=== PATIENT | male | born 1935 | race Caucasian/White ===

== ENCOUNTER 2017-10-01 08:00 | Outpatient (CLI) | payer MEDICARE, BC | END 2017-10-01 08:01 | disposition home or self-care (01) | LOC: BICCT 08:00 | PROVIDERS: ATTEND Internal Medicine Critical Care Medicine | DX: J90 Pleural effusion, not elsewhere classified (principal); J98.6 Disorders of diaphragm; R91.8 Other nonspecific abnormal finding of lung field | CPT/HCPCS: 71250 ==

== ENCOUNTER 2018-10-13 08:32 | Outpatient (CLI) | payer MEDICARE, BC ==
--- NOTE | 2018-10-13 09:55 | CT ---
CT THORAX WITHOUT CONTRAST: INDICATIONS: Followup lung lesion. COMPARISON: 10/01/2017 and 01/01/2017 FINDINGS: The pleural thickening with pleural-based calcification overlying the left upper lobe anterolaterally is stable. The rounded atelectasis involving the left upper lobe is slightly less prominent than on the most recent comparison, dated 10/01/2017. The more rounded, nodular component measures 1.4 x 1 cm, where previously it measured 1.7 x 1.1 cm. There are scattered calcified granuloma. No new susp icious pulmonary nodules evident. Post CABG change is stable. Adrenal glands are normal appearing. No acute osseous abnormality is evident. Post CABG change is similar appearing. IMPRESSION: 1. Stable areas of suspected rounded atelectasis in the left upper lobe. Follow-up examination in t hree to six months would be recommended to document complete stability. 2. Other stable chronic findings as above. POS: [facility]
== END 2018-10-13 08:33 | disposition home or self-care (01) ==
LOC: CT 08:32
PROVIDERS: ATTEND Internal Medicine Critical Care Medicine
DX: R91.1 Solitary pulmonary nodule (principal); J92.9 Pleural plaque without asbestos; J94.8 Other specified pleural conditions; Z95.1 Presence of aortocoronary bypass graft
CPT/HCPCS: 71250

== ENCOUNTER 2018-10-26 09:22 | Outpatient (CLI) | payer MEDICARE, BC ==
--- NOTE | 2018-10-26 12:03 | CT ---
CT ABDOMEN AND PELVIS WITH AND WITHOUT IV CONTRAST: Date: 10-26-18 Provided Clinical History: Microhematuria. FINDINGS: The visualized lung bases are free of significant opacity. There is a 2-3 mm nonobstructing superior pole right renal calculus. No additional urinary tract calc hernando are evident. There is no evidence for renal mass or hydronephrosis. The renal collecting systems, opacified ureters and urinary bladder demonstrate no evidence for filling defect. The urinary bladde r is incompletely distended and not optimally evaluated. The liver, spleen, pancreas, and right adrenal gland appear unremarkable. There is a centimeter lipid left adrenal adenoma. There is no bowel dilatation, inflammatory fat stranding, free fluid or lymph node enlargement appare nt. Vascular calcifications are noted involving the abdominal aorta and its branches. Sigmoid colonic diverticulosis is seen. The osseous structures demonstrate no evidence for a concerning lytic or blastic lesion. IMPRESSION: 1. 2-3 mm nonobstructing superior pole right renal calculus. 2. Other chronic findings as above. POS: [facility]
[2018-10-26] MEDS ORDERED: ISOVUE-370 76%-LOCM 1 ML ONE (13:08)
== END 2018-10-26 09:23 | disposition home or self-care (01) ==
LOC: BICCT 09:22
PROVIDERS: ATTEND Urology
DX: R31.1 Benign essential microscopic hematuria (principal); N20.0 Calculus of kidney; D35.02 Benign neoplasm of left adrenal gland; I70.0 Atherosclerosis of aorta; K57.30 Diverticulosis of large intestine without perforation or abscess without bleeding
CPT/HCPCS: 74178; 82565; Q9966

== ENCOUNTER 2019-10-06 09:42 | Outpatient (CLI) | payer MEDICARE, BC ==
--- NOTE | 2019-10-06 11:10 | CT ---
CT CHEST WITHOUT CONTRAST: INDICATIONS: Follow up lung nodule. COMPARISON: Prior chest CT from 10/13/2018. TECHNIQUE: Axial tomograms obtained with multiplanar reconstruction. FINDINGS: Dense, linear stranding is seen in the left upper lobe, extending from the left hilum to the anterior pleural surface. There is associated pleural thickening and calcified pleural plaquing along the ant erior pleura of the left chest, which was noted previously. The linear, somewhat nodular appearing walter ng opacity in the left upper lobe appears stable. The anterior pleural thickening and calcification i n the left chest appears stable. There is a small calcified granuloma along the fissure in the mid le ft chest, which is stable. The right lung is clear. There is a 3 mm calcified granuloma in the right lung base, unchanged. The lung espino are otherwise clear. The mediastinum is unremarkable with nonspecific lymph nodes, which are stable. Images through the upper abdomen show a small nodular density involving the left adrenal gland, measu ring approximately 1 cm. This is a stable finding and has density suggesting benign adenoma. The uppe r abdomen is otherwise unremarkable and unchanged. IMPRESSION: Stable chest findings when compared to prior examination. POS: [facility]
== END 2019-10-06 09:43 | disposition home or self-care (01) ==
LOC: BICCT 09:42
PROVIDERS: ATTEND Internal Medicine Critical Care Medicine
DX: R91.1 Solitary pulmonary nodule (principal)
CPT/HCPCS: 71250

== ENCOUNTER 2020-05-25 16:23 | Observation (INO) | payer MEDICARE, BC, OTHER ==
[2020-05-25 17:08] VITALS: BMI 23.1
[2020-05-25 17:22] LABS: #Basophils 0.1 thou/uL (0.0-0.2); #Eosinphils 0.5 thou/uL (0.0-0.7); #Lymphocytes 1.1 thou/uL (1.20-3.40); #Monocytes 0.9 thou/uL (0.11-0.59); #Neutrophils 4.5 thou/uL (1.40-6.50); %Basophils 1.1 % (0.0-1.0); %Eosinophils 7.6 % (0.0-10.0); %Lymphocytes 15.8 % (21.0-51.0); %Monocytes 13.2 % (0.0-10.0); %Neutrophils 62.3 % (42.0-75.0); Hemoglobin 11.8 g/dL (14.0-18.0); Mean Corpuscular HGB CONC 32.6 g/dL (32.0-36.0); Mean Corpuscular Hemoglobin 32.5 pg (27.0-31.0); Mean Corpuscular Volume 99.6 fL (78.0-98.0); Mean Platelet Volume 7.2 fL (7.4-10.4); Platelet Count 187 thou/uL (130-400); RBC Distribution Width 12.3 % (11.5-14.5); Red Blood Cell (RBC) Count 3.64 mill/uL (4.70-6.10); White Blood Cell (WBC) Count 7.1 thou/uL (4.8-10.8)
[2020-05-25 17:30] LABS: INR-International Normal Ratio 2.5
[2020-05-25] MEDS ORDERED: Zolpidem Tartrate 5 MG TAB PO PRN (17:32)
[2020-05-25 17:39] LABS: ALT (SGPT) 12 U/L (8-55); AST (SGOT) 14 U/L (5-34); Albumin 3.9 g/dL (3.4-4.8); Alkaline Phosphatase 77 U/L (40-110); Anion Gap 14 mmol/L (10-20); BUN (Urea Nitrogen) 34 mg/dL (8.4-25.7); Bilirubin, Total 0.4 mg/dL (0.2-1.2); Calc. Creatinine Clearance 37 mL/min (70-130); Calcium 8.6 mg/dL (7.8-10.44); Carbon Dioxide 24 mmol/L (23-31); Chloride 100 mmol/L (98-107); Estimated GFR-MDRD 39; Globulin 2.8 g/dL (2.4-3.5); Glucose 192 mg/dL (83-110); Potassium 4.4 mmol/L (3.5-5.1); Protein, Total 6.7 g/dL (5.8-8.1); Sodium 134 mmol/L (136-145)
[2020-05-25 17:42] LABS: CKMB 1.1 ng/mL (0-6.6)
[2020-05-25] MEDS ORDERED: Phytonadione 10 MG/ML AMP PO SCH (18:00)
[2020-05-25] MEDS: Sodium Chloride 0.9% 1,000 ML IV SCH (18:42)
[2020-05-25] MEDS ORDERED: Atorvastatin Calcium 10 MG TAB PO SCH (21:00)
[2020-05-25 23:32] LABS: Troponin I Less than 0.010 ng/mL (< 0.028)
[2020-05-26 02:54] LABS: #Eosinphils 0.5 thou/uL (0.0-0.7); #Lymphocytes 1.6 thou/uL (1.20-3.40); #Monocytes 1.1 thou/uL (0.11-0.59); #Neutrophils 4.6 thou/uL (1.40-6.50); %Basophils 0.6 % (0.0-1.0); %Eosinophils 6.5 % (0.0-10.0); %Lymphocytes 20.5 % (21.0-51.0); %Monocytes 13.7 % (0.0-10.0); %Neutrophils 58.6 % (42.0-75.0); Hemoglobin 11.6 g/dL (14.0-18.0); Mean Corpuscular HGB CONC 33.4 g/dL (32.0-36.0); Mean Corpuscular Hemoglobin 32.5 pg (27.0-31.0); Mean Corpuscular Volume 97.4 fL (78.0-98.0); Mean Platelet Volume 7.3 fL (7.4-10.4); Platelet Count 172 thou/uL (130-400); RBC Distribution Width 12.3 % (11.5-14.5); Red Blood Cell (RBC) Count 3.57 mill/uL (4.70-6.10); White Blood Cell (WBC) Count 7.9 thou/uL (4.8-10.8)
[2020-05-26 03:33] LABS: Troponin I 0.025 ng/mL (< 0.028)
[2020-05-26 03:37] LABS: ALT (SGPT) 11 U/L (8-55); AST (SGOT) 14 U/L (5-34); Albumin 3.7 g/dL (3.4-4.8); Alkaline Phosphatase 71 U/L (40-110); Anion Gap 15 mmol/L (10-20); BUN (Urea Nitrogen) 30 mg/dL (8.4-25.7); Bilirubin, Total 0.5 mg/dL (0.2-1.2); Calc. Creatinine Clearance 46 mL/min (70-130); Calcium 8.3 mg/dL (7.8-10.44); Carbon Dioxide 22 mmol/L (23-31); Chloride 105 mmol/L (98-107); Estimated GFR-MDRD 50; Globulin 2.5 g/dL (2.4-3.5); Glucose 108 mg/dL (83-110); Potassium 4.5 mmol/L (3.5-5.1); Protein, Total 6.2 g/dL (5.8-8.1); Sodium 137 mmol/L (136-145)
[2020-05-26] MEDS: Sodium Chloride 0.9% 1,000 ML IV SCH (05:18)
[2020-05-26 05:52] LABS: Troponin I 0.022 ng/mL (< 0.028)
[2020-05-26] MEDS ORDERED: Levothyroxine 150 MCG TAB PO SCH (06:00)
[2020-05-26] MEDS ORDERED: Lidocaine 1% (PF) 30 ML VIAL ONE (06:49)
[2020-05-26] MEDS ORDERED: Sodium Chloride 0.9% 200 ML IV PRN (08:12)
[2020-05-26] MEDS ORDERED: Nitroglycerin 0.4 MG TAB (25 Tab Bottle) SL PRN (08:12)
[2020-05-26] MEDS ORDERED: Acetaminophen/Codeine 30-300mg Tablet PO PRN ×2 (08:12)
[2020-05-26] MEDS ORDERED: Sodium Chloride 0.9% 1,000 ML IV SCH (08:15)
[2020-05-26 08:57] VITALS: BP 170/70; TEMP 98
[2020-05-26 09:00] LABS: Troponin I 0.023 ng/mL (< 0.028)
[2020-05-26] MEDS ORDERED: Aspirin Chewable 81 MG TAB PO SCH (09:00)
[2020-05-26] MEDS ORDERED: Multivit, Therapeutic 1 TAB PO SCH (09:00)
[2020-05-26] MEDS ORDERED: Dutasteride 0.5 MG CAP PO SCH (09:00)
[2020-05-26] MEDS ORDERED: Tamsulosin HCl 0.4 MG CAP PO SCH ×3 (09:00→21:00)
[2020-05-26] MEDS ORDERED: Amlodipine 5 MG TAB PO SCH ×2 (09:00→21:00)
--- NOTE | 2020-05-26 09:13 | DIS ---
DATE OF ADMISSION: 05/25/2020 DATE OF DISCHARGE: 05/26/2020 DISCHARGE DIAGNOSES: 1. Abnormal EKG. 2. Coronary artery disease. 3. Atrial fibrillation. HOSPITAL COURSE: Mr. Marinelli is a pleasant 85-year-old gentleman who recently was admitted from the office. He had dynamic EKG changes with deep T-wave inversions. It was felt to be a new finding over the last week. He had a recent stress test that was felt to be within normal limits. He was admitted due to abnormal EKG suggesting unstable angina. His CKs and troponins were negative. His initial INR was 2.6. He was given 10 mg of vitamin K. INR in the morning of the angio was 2.0. He underwent coronary angiography. He was found to have no significant changes from angio in 2012. The stent to the diagonal and OM are patent. His FAIR to the LAD, saphenous vein graft to the right coronary artery, OM, diagonal branch are patent. Perclose was used. After the above EKG changes likely due to memory, he does have an intermittent left bundle-branch block followed by normal conduction. It is unknown whether he truly has symptoms from the above. We would recommend a 3-week event recorder to assess for significant rhythm issues. We will also change his Coumadin to Eliquis 5 mg one p.o. b.i.d. at least temporarily. He will likely continue to decrease his INR after receiving vitamin K. If he opts for Coumadin as outpatient, we can certainly switch after several weeks. DISCHARGE MEDICATIONS: Include: 1. Amlodipine 5 mg daily. 2. Tamsulosin 0.8 at bedtime. 3. Olmesartan 20 daily. 4. Multivitamin one daily. 5. Levothyroxine 150 daily. 6. Lasix p.r.n. 7. Aspirin 81 daily. 8. Eliquis 5 mg b.i.d. 9. Metoprolol 25 at bedtime. 10. Atorvastatin 10 mg daily. CONDITION ON DISCHARGE: Stable. Job ID: [id number]
[2020-05-26 12:41] LABS: SARS-CoV-2 MS2 Positive; SARS-CoV-2 N Gene Negative; SARS-CoV-2 S Gene Negative; SARS-CoV-2 by NAA Not Detected (NotDetected); SARS-CoV-2 orf1ab Negative
[2020-05-26] MEDS ORDERED: Iopamidol 370 76% 100 ML VIAL ONE (14:06)
[2020-05-26] MEDS ORDERED: Apixaban 5 MG TAB PO SCH (21:00)
== END 2020-05-26 15:50 | disposition home or self-care (01) ==
LOC: 2SW 16:41
PROVIDERS: ADMIT Internal Medicine Cardiovascular Disease; ATTEND Internal Medicine Cardiovascular Disease
PROC: 4A023N7 Measurement of Cardiac Sampling and Pressure, Left Heart, Percutaneous Approach (ICD-10-PCS; principal; 2020-05-26)
PROC: B2111ZZ Fluoroscopy of Multiple Coronary Arteries using Low Osmolar Contrast (ICD-10-PCS; 2020-05-26)
DX: I25.110 Atherosclerotic heart disease of native coronary artery with unstable angina pectoris (principal); I48.0 Paroxysmal atrial fibrillation; I10 Essential (primary) hypertension; E03.9 Hypothyroidism, unspecified; E78.5 Hyperlipidemia, unspecified; Z20.828 Contact with and (suspected) exposure to other viral communicable diseases; Z79.899 Other long term (current) drug therapy; Z95.1 Presence of aortocoronary bypass graft
CPT/HCPCS: 76942; 80053 ×2; 82553 ×2; 84484 ×4; 85025 ×2; 85610 ×2; 93458; 96360; 96361 ×2; C1760; G0378 ×2; U0003; 36415; 87635; J1644; J2001; J3430; Q9967

== ENCOUNTER 2020-08-30 09:34 | Outpatient (CLI) | payer MEDICARE, BC ==
--- NOTE | 2020-08-30 10:18 | CT ---
EXAM: CT of the chest without contrast HISTORY: Pulmonary nodule COMPARISON: 10/06/2019, 10/13/2018, 04/01/2017 TECHNIQUE: Multiple contiguous axial images were obtained in a CT the chest without contrast. Coronal and sagittal reformats were performed. FINDINGS: HEART: Normal in size without focal cardiac abnormality. Status post CABG. Calcifications in the samuel nary arteries. MEDIASTINUM: No hilar or mediastinal lymphadenopathy. Evaluation of the mediastinum is limited withou t IV contrast. LUNGS: Calcified granulomas are seen in the right lower lobe and along the left major fissure in the left lower lobe. There is stable scarring with associated volume loss in the left upper lobe. This hasn't changed significantly in appearance since 2017. PLEURAL SPACE: Small left pleural effusion. Peripheral pleural-based calcifications are seen in the a nterior aspect of the left thorax. CHEST WALL SOFT TISSUES: Unremarkable OSSEOUS STRUCTURES: Degenerative changes in the spine. VISUALIZED SUBDIAPHRAGMATIC STRUCTURES: There is stable fullness of the left adrenal gland. IMPRESSION: 1. No suspicious pulmonary nodules identified 2. Small left pleural effusion 3. Stable scarring in the left upper lobe.
== END 2020-08-30 09:35 | disposition home or self-care (01) ==
LOC: BICCT 09:34
PROVIDERS: ATTEND Internal Medicine Critical Care Medicine
DX: R91.1 Solitary pulmonary nodule (principal); J90 Pleural effusion, not elsewhere classified; J98.4 Other disorders of lung
CPT/HCPCS: 71250

== ENCOUNTER 2021-08-16 11:45 | Inpatient (IN) | payer MEDICARE, BC ==
[2021-08-16] MEDS ORDERED: Amiodarone 150 MG/3 ML VIAL ONE (12:00)
[2021-08-16] MEDS ORDERED: Magnesium 2 GM/50 ML BAG (IN WATER) ONE (12:01)
[2021-08-16 12:11] LABS: #Basophils 0.1 thou/uL (0.0-0.2); #Lymphocytes 0.8 thou/uL (1.20-3.40); #Monocytes 0.7 thou/uL (0.11-0.59); #Neutrophils 5.7 thou/uL (1.40-6.50); %Basophils 0.8 % (0.0-1.0); %Eosinophils 0.6 % (0.0-10.0); %Lymphocytes 10.7 % (21.0-51.0); %Monocytes 9.7 % (0.0-10.0); %Neutrophils 78.2 % (42.0-75.0); Hemoglobin 12.8 g/dL (14.0-18.0); Mean Corpuscular HGB CONC 31.2 g/dL (32.0-36.0); Mean Corpuscular Hemoglobin 30.8 pg (27.0-31.0); Mean Corpuscular Volume 98.6 fL (78.0-98.0); Mean Platelet Volume 7.2 fL (7.4-10.4); Platelet Count 214 thou/uL (130-400); RBC Distribution Width 12.4 % (11.5-14.5); Red Blood Cell (RBC) Count 4.15 mill/uL (4.70-6.10); White Blood Cell (WBC) Count 7.3 thou/uL (4.8-10.8)
[2021-08-16] MEDS ORDERED: Diltiazem 125 MG/25 ML ONE (12:17)
[2021-08-16 12:28] LABS: ALT (SGPT) 20 U/L (8-55); AST (SGOT) 18 U/L (5-34); Albumin 4.1 g/dL (3.4-4.8); Alkaline Phosphatase 76 U/L (40-110); Anion Gap 11 mmol/L (10-20); BUN (Urea Nitrogen) 25 mg/dL (8.4-25.7); Bilirubin, Total 0.7 mg/dL (0.2-1.2); Calc. Creatinine Clearance 0 mL/min (70-130); Calcium 9.1 mg/dL (7.8-10.44); Carbon Dioxide 27 mmol/L (23-31); Chloride 102 mmol/L (98-107); Globulin 3.2 g/dL (2.4-3.5); Glucose 135 mg/dL (83-110); Potassium 4.3 mmol/L (3.5-5.1); Protein, Total 7.3 g/dL (5.8-8.1); Sodium 136 mmol/L (136-145)
[2021-08-16 13:51] LABS: INR-International Normal Ratio 2.2; Prothrombin Time 24.5 sec (12.0-14.7)
[2021-08-16 13:52] LABS: PTT 42.9 sec (22.9-36.1)
[2021-08-16] MEDS ORDERED: Ondansetron ODT 4 MG TAB PO PRN (14:46)
[2021-08-16] MEDS ORDERED: Ondansetron PF 4 MG/2 ML Vial IVP PRN (14:46)
[2021-08-16] MEDS ORDERED: Acetaminophen 650 MG Suppository PR PRN (14:46)
[2021-08-16] MEDS ORDERED: Acetaminophen 325 MG TAB PO PRN (14:46)
[2021-08-16 15:04] LABS: Troponin I 0.036 ng/mL (< 0.028)
[2021-08-16 15:21] LABS: Magnesium 2.5 mg/dL (1.6-2.6)
[2021-08-16 18:49] LABS: Troponin I 0.027 ng/mL (< 0.028)
[2021-08-16 21:21] LABS: SARS-CoV-2 NAA Rapid Test Not Detected (NotDetected)
[2021-08-16 21:30] VITALS: BMI 23.1
[2021-08-17 05:25] LABS: #Basophils 0.1 thou/uL (0.0-0.2); #Eosinphils 0.6 thou/uL (0.0-0.7); #Lymphocytes 1.2 thou/uL (1.20-3.40); #Monocytes 0.9 thou/uL (0.11-0.59); #Neutrophils 5.9 thou/uL (1.40-6.50); %Basophils 0.6 % (0.0-1.0); %Eosinophils 6.6 % (0.0-10.0); %Lymphocytes 13.7 % (21.0-51.0); %Monocytes 10.4 % (0.0-10.0); %Neutrophils 68.7 % (42.0-75.0); Hemoglobin 11.8 g/dL (14.0-18.0); Mean Corpuscular Hemoglobin 31.8 pg (27.0-31.0); Mean Corpuscular Volume 99.3 fL (78.0-98.0); Mean Platelet Volume 7.3 fL (7.4-10.4); Platelet Count 182 thou/uL (130-400); RBC Distribution Width 12.6 % (11.5-14.5); Red Blood Cell (RBC) Count 3.71 mill/uL (4.70-6.10); White Blood Cell (WBC) Count 8.6 thou/uL (4.8-10.8)
[2021-08-17 05:44] LABS: Anion Gap 10 mmol/L (10-20); BUN (Urea Nitrogen) 19 mg/dL (8.4-25.7); Calc. Creatinine Clearance 67 mL/min (70-130); Calcium 8.6 mg/dL (7.8-10.44); Carbon Dioxide 25 mmol/L (23-31); Chloride 106 mmol/L (98-107); Glucose 104 mg/dL (83-110); Magnesium 2.1 mg/dL (1.6-2.6); Potassium 3.9 mmol/L (3.5-5.1); Sodium 137 mmol/L (136-145)
[2021-08-17] MEDS: Levothyroxine 150 MCG TAB PO SCH (06:04)
[2021-08-17] MEDS: Aspirin 81 mg Enteric Coated Tablet PO SCH (08:32)
[2021-08-17] MEDS: Dronedarone HCl 400 MG TAB PO SCH ×2 (08:32→17:07)
[2021-08-17] MEDS: Apixaban 5 MG TAB PO SCH ×2 (08:33→20:51)
[2021-08-17] MEDS ORDERED: FLU VACC QS2021-22(65YR UP)/PF 240 MCG/0.7 ML SYRINGE IM ONE (09:00)
[2021-08-17] MEDS ORDERED: PROPOFOL 20 ML ONE (14:11)
[2021-08-17] MEDS ORDERED: PROPOFOL 200 MG/20 ML VIAL ONE (14:29)
[2021-08-17] MEDS ORDERED: Nitroglycerin 0.4 MG TAB (25 Tab Bottle) SL PRN (17:45)
[2021-08-17] MEDS ORDERED: Tamsulosin HCl 0.4 MG CAP PO SCH (21:00)
[2021-08-18 04:54] LABS: #Basophils 0.1 thou/uL (0.0-0.2); #Eosinphils 0.6 thou/uL (0.0-0.7); #Lymphocytes 1.3 thou/uL (1.20-3.40); #Neutrophils 5.6 thou/uL (1.40-6.50); %Basophils 0.7 % (0.0-1.0); %Eosinophils 6.6 % (0.0-10.0); %Lymphocytes 15.4 % (21.0-51.0); %Neutrophils 65.4 % (42.0-75.0); Hemoglobin 10.8 g/dL (14.0-18.0); Mean Corpuscular HGB CONC 33.7 g/dL (32.0-36.0); Mean Corpuscular Hemoglobin 33.2 pg (27.0-31.0); Mean Corpuscular Volume 98.7 fL (78.0-98.0); Mean Platelet Volume 7.3 fL (7.4-10.4); Platelet Count 162 thou/uL (130-400); RBC Distribution Width 12.5 % (11.5-14.5); Red Blood Cell (RBC) Count 3.24 mill/uL (4.70-6.10); White Blood Cell (WBC) Count 8.6 thou/uL (4.8-10.8)
[2021-08-18 05:05] LABS: Anion Gap 8 mmol/L (10-20); BUN (Urea Nitrogen) 24 mg/dL (8.4-25.7); Calc. Creatinine Clearance 55 mL/min (70-130); Calcium 8.3 mg/dL (7.8-10.44); Carbon Dioxide 26 mmol/L (23-31); Chloride 106 mmol/L (98-107); Glucose 96 mg/dL (83-110); Potassium 3.7 mmol/L (3.5-5.1); Sodium 136 mmol/L (136-145)
[2021-08-18] MEDS: Levothyroxine 150 MCG TAB PO SCH (05:57)
[2021-08-18] MEDS ORDERED: Multivit, Therapeutic 1 TAB PO SCH (09:00)
[2021-08-18] MEDS ORDERED: Dutasteride 0.5 MG CAP PO SCH (09:00)
[2021-08-18] MEDS ORDERED: Losartan 25 MG TAB PO SCH (09:00)
[2021-08-18] MEDS: Apixaban 5 MG TAB PO SCH (09:27)
[2021-08-18] MEDS: Dronedarone HCl 400 MG TAB PO SCH (09:27)
[2021-08-18] MEDS: Aspirin 81 mg Enteric Coated Tablet PO SCH (09:27)
[2021-08-18 12:15] VITALS: BP 134/63; TEMP 97.9
[2021-08-18] MEDS ORDERED: Atorvastatin Calcium 10 MG TAB PO SCH (21:00)
== END 2021-08-18 14:51 | disposition home or self-care (01) | DRG 310 ==
LOC: ERS 11:45 → ERHOLD 13:40 → 2SE 20:56 → 2NO 21:07
PROVIDERS: ADMIT Internal Medicine Cardiovascular Disease; ATTEND Hospitalist
PROC: B246ZZ4 Ultrasonography of Right and Left Heart, Transesophageal (ICD-10-PCS; principal; 2021-08-17)
PROC: 5A2204Z Restoration of Cardiac Rhythm, Single (ICD-10-PCS; 2021-08-17)
DX: I48.0 Paroxysmal atrial fibrillation (principal); I25.10 Atherosclerotic heart disease of native coronary artery without angina pectoris; E03.9 Hypothyroidism, unspecified; I10 Essential (primary) hypertension; I44.7 Left bundle-branch block, unspecified; I49.5 Sick sinus syndrome; I08.1 Rheumatic disorders of both mitral and tricuspid valves; Z20.822 Contact with and (suspected) exposure to COVID-19; E78.5 Hyperlipidemia, unspecified; Z79.01 Long term (current) use of anticoagulants; Z95.1 Presence of aortocoronary bypass graft; Z95.5 Presence of coronary angioplasty implant and graft; Z79.82 Long term (current) use of aspirin; Z79.899 Other long term (current) drug therapy
CPT/HCPCS: 36415; 71045; 80048; 80053; 83735; 84443; 84484; 85025; 85610; 85730; 92960; 93005; 93010; 93312; 96365; 96366; 96374; 96375; J0282; J2704; J3475; U0002

== ENCOUNTER 2024-09-13 12:31 | Outpatient (CLI) | payer MEDICARE ==
[2024-09-13 14:10] LABS: #Basophils 0.05 10x3/uL (0.0-0.2); %Basophils 0.8 % (0.0-1.0); %Eosinophils 7.9 % (0.0-10.0); %Lymphocytes 21.5 % (21.0-51.0); %Monocytes 14.7 % (0.0-10.0); %Neutrophils 54.8 % (42.0-75.0); Hematocrit 33.5 % (42.0-52.0); Hemoglobin 10.8 g/dL (14.0-18.0); Mean Corpuscular HGB CONC 32.2 g/dL (32.0-36.0); Mean Corpuscular Hemoglobin 32.1 pg (27.0-31.0); Mean Corpuscular Volume 99.7 fL (78.0-98.0); Mean Platelet Volume 9.9 fL (7.4-10.4); Platelet Count 185 10x3/uL (130-400); RBC Distribution Width 13.6 % (11.5-14.5); Red Blood Cell (RBC) Count 3.36 mill/uL (4.70-6.10)
[2024-09-13 14:24] LABS: INR-International Normal Ratio 1.4; PTT 39.6 sec (22.9-36.1); Prothrombin Time 17.5 sec (12.0-14.7)
[2024-09-13 14:30] LABS: Anion Gap 13 mmol/L (10-20); BUN (Urea Nitrogen) 25 mg/dL (8.4-25.7); Calc. Creatinine Clearance 0 mL/min (70-130); Calcium 8.8 mg/dL (7.8-10.44); Carbon Dioxide 23 mmol/L (23-31); Chloride 109 mmol/L (98-107); Estimated GFR 49; Glucose 94 mg/dL (83-110); Potassium 4.5 mmol/L (3.5-5.1); Sodium 140 mmol/L (136-145)
== END 2024-09-13 12:32 | disposition home or self-care (01) ==
LOC: LABBT 12:31
PROVIDERS: ATTEND Urology
DX: Z01.812 Encounter for preprocedural laboratory examination (principal); N47.1 Phimosis
CPT/HCPCS: 80048; 85025; 85610; 85730

== ENCOUNTER 2024-09-21 09:49 | Day surgery (SDC) | payer MEDICARE ==
[2024-09-13 12:52] VITALS: BMI 24.4
[2024-09-21] MEDS ORDERED: Bacitracin Zinc Ointment 30 gm TUBE ONE (10:44)
[2024-09-21] MEDS ORDERED: PROPOFOL 20 ML ONE (10:44)
[2024-09-21] MEDS ORDERED: fentaNYL PF 100 MCG/2 ML SYRINGE ONE (10:44)
[2024-09-21] MEDS ORDERED: Bupivacaine 0.25% HCL 30 ML VIAL ONE (10:44)
[2024-09-21] MEDS ORDERED: Lidocaine 2% PF 5 ML VIAL ONE (10:45)
[2024-09-21] MEDS ORDERED: CEFAZOLIN 2 GM VIAL ONE (12:03)
[2024-09-21] MEDS ORDERED: PHENYLEPHRINE-NS 100 MCG/ML 10 ML SYRINGE ONE (12:32)
[2024-09-21] MEDS ORDERED: fentaNYL 50 mcg/mL 1 mL Vial ONE (13:13)
[2024-09-21] MEDS ORDERED: HYDROcodone/Acetaminophen 5/325 mg Tablet ONE (14:45)
== END 2024-09-21 15:35 | disposition home or self-care (01) ==
LOC: SDC 09:49
PROVIDERS: ATTEND Urology
PROC: 0VNT0ZZ Release Prepuce, Open Approach (ICD-10-PCS; principal; 2024-09-21)
DX: N47.1 Phimosis (principal); I48.91 Unspecified atrial fibrillation; I34.0 Nonrheumatic mitral (valve) insufficiency; I25.119 Atherosclerotic heart disease of native coronary artery with unspecified angina pectoris; I12.9 Hypertensive chronic kidney disease with stage 1 through stage 4 chronic kidney disease, or unspecified chronic kidney disease; N18.9 Chronic kidney disease, unspecified; N40.0 Benign prostatic hyperplasia without lower urinary tract symptoms; E78.00 Pure hypercholesterolemia, unspecified; E03.9 Hypothyroidism, unspecified; Z95.0 Presence of cardiac pacemaker; Z95.1 Presence of aortocoronary bypass graft; Z95.5 Presence of coronary angioplasty implant and graft; Z85.828 Personal history of other malignant neoplasm of skin; Z79.01 Long term (current) use of anticoagulants; Z79.899 Other long term (current) drug therapy
CPT/HCPCS: 54001; J0665; J2704; J3010